=== PATIENT | female | born 1975 ===

== ENCOUNTER 2024-09-05 06:23 | Day surgery (SDC) | payer OTHER ==
[2024-08-28 13:53] VITALS: BP 138/65
[~2024-09-05] VITALS: Ht 149.9 cm; Wt 60.8 kg
[~2024-09-05 06:23] MED LIST: HORIZANT300 MG PO; LOSARTAN POTASS50 MG PO; NORVASC5 MG PO
== END 2024-09-05 13:40 | disposition home or self-care (01) ==
LOC: CIR.AMB 06:23
PROVIDERS: ATTEND Surgery Surgery of the Hand
DX: M65.841 Other synovitis and tenosynovitis, right hand (principal)